=== PATIENT | male | born 1975 | race Caucasian/White ===

== ENCOUNTER 2018-05-21 08:37 | Emergency (ER) | payer SELFPAY ==
[~2018-05-21] VITALS: Ht 177.8 cm; Wt 81.8 kg
[2018-05-21 10:20] VITALS: BP 132/68
== END 2018-05-21 10:20 | disposition home or self-care (01) ==
LOC: EMS 08:38
DX: S80.861A Insect bite (nonvenomous), right lower leg, initial encounter (principal); S80.862A Insect bite (nonvenomous), left lower leg, initial encounter; S40.862A Insect bite (nonvenomous) of left upper arm, initial encounter; S40.861A Insect bite (nonvenomous) of right upper arm, initial encounter; L03.114 Cellulitis of left upper limb; L03.113 Cellulitis of right upper limb; L03.116 Cellulitis of left lower limb; L03.115 Cellulitis of right lower limb; B86 Scabies; F12.90 Cannabis use, unspecified, uncomplicated; F17.210 Nicotine dependence, cigarettes, uncomplicated; W57.XXXA Bitten or stung by nonvenomous insect and other nonvenomous arthropods, initial encounter; Y93.89 Activity, other specified; Y92.89 Other specified places as the place of occurrence of the external cause; Y99.8 Other external cause status
CPT/HCPCS: 99283